=== PATIENT | female | born 1950 | race Two or more races ===

== ENCOUNTER 2021-05-29 07:57 | Day surgery (SDC) | payer MEDICARE, BC ==
[2021-05-29] MEDS ORDERED: HEPARIN SODIUM 1,000 UNIT/1ML VIAL IV ONE (07:58)
[2021-05-29] MEDS ORDERED: NICARDIPINE 100MCG/ML 10ML VIAL (CATH LAB) IV ONE (07:58)
[2021-05-29] MEDS ORDERED: NITROGLYCERIN 50MCG/ML 10ML VIAL (CATH LAB) IV ONE (07:58)
[2021-05-29] MEDS ORDERED: FLUT1BLS INH (10:44)
[2021-05-29] MEDS ORDERED: TRIA1TAB94 PO (10:44)
[2021-05-29] MEDS ORDERED: ROSU5TAB PO (10:44)
[2021-05-29] MEDS ORDERED: ASPI-1497 PO (10:44)
[2021-05-29] MEDS ORDERED: LEVO75TA7 PO (10:44)
[2021-05-29] MEDS ORDERED: FENTANYL CITRATE/PF 50MCG/ML 2ML VIAL ONE (11:10)
[2021-05-29] MEDS ORDERED: IODIXANOL 320MG/ML 100 ML BOTTLE IV ONE (11:10)
[2021-05-29] MEDS ORDERED: MIDAZOLAM HCL 2 MG/2 ML VIAL ONE (11:10)
[2021-05-29] MEDS ORDERED: LIDOCAINE HCL 1% 30ML VIAL (10MG/ML) ONE (11:10)
== END 2021-05-29 15:20 | disposition home or self-care (01) ==
LOC: CCL 07:57
PROVIDERS: ATTEND Specialist
DX: R07.9 Chest pain, unspecified (principal); I25.10 Atherosclerotic heart disease of native coronary artery without angina pectoris; E03.9 Hypothyroidism, unspecified; E78.5 Hyperlipidemia, unspecified; I11.9 Hypertensive heart disease without heart failure; Z79.899 Other long term (current) drug therapy; Z98.890 Other specified postprocedural states; Z88.1 Allergy status to other antibiotic agents; Z79.51 Long term (current) use of inhaled steroids; Z79.82 Long term (current) use of aspirin; Z20.822 Contact with and (suspected) exposure to COVID-19
CPT/HCPCS: 87426; 93458; C1769; C1887; C1893; J1644; J2250; J3010; J3490; Q9967